=== PATIENT | female | born 1955 | race Two or more races ===

== ENCOUNTER → 2020-12-24 | Day surgery (SDC) | payer OTHER ==
[~2020-12-24] VITALS: Ht 157.5 cm; Wt 80.7 kg
[~2020-12-24] MED LIST: ATORVASTATIN CA20 MG PO; CYCLOBENZAPRINE10 MG PO; DICLOFENAC SODI75 MG PO; OZEMPIC1 MG/0.75 SC; PERCOCET 5-3251 EACH PO; TRAMADOL HCL50 MG PO; VENTOLIN HFA IN18 GM INH; ZANAFLEX4 M1 PO
[2020-12-24 08:52] LABS: HCT 40.4 % (37.0-47.0); HGB 13.1 g/dl (12.5-16.0); MCH 26.4 pg (25.0-31.0); MCHC 32.4 g/dL (32.0-36.0); MCV 81.3 fL (78.0-100.0); MPV 10.5 fL (6.0-9.5); RBC 4.97 M/uL (4.20-5.40); RDW 14.2 % (11.5-14.0); WBC 5.6 K/uL (4.0-10.5)
[2020-12-24 09:14] LABS: ALBUMIN 3.7 g/dL (3.4-5.0); BILIRUBIN - TOTAL 0.7 mg/dL (0.2-1.0); BUN/CREAT RATIO (CALC) 16.3 RATIO; CREATININE 0.92 mg/dL (0.51-0.95); GLOBULIN (CALCULATION) 3.7 g/dL; POTASSIUM 4.2 mmol/L (3.5-5.1); TOTAL PROTEIN 7.4 g/dL (6.4-8.2)
== END | disposition home or self-care (01) ==
LOC: FAS 07:00 → EDSEX 11:45 → FAS 12:30
PROVIDERS: Orthopaedic Surgery
DX: M65.311 Trigger thumb, right thumb (principal); G56.01 Carpal tunnel syndrome, right upper limb; M65.841 Other synovitis and tenosynovitis, right hand; R94.31 Abnormal electrocardiogram [ECG] [EKG]; K21.9 Gastro-esophageal reflux disease without esophagitis; E78.5 Hyperlipidemia, unspecified; J45.909 Unspecified asthma, uncomplicated; E11.9 Type 2 diabetes mellitus without complications; Z98.51 Tubal ligation status
CPT/HCPCS: 36415; 80053; 82962; 93005; J1100; J1170; J2250; J2405; J2704; J3010; J7120